=== PATIENT | female | born 1975 | race Caucasian/White ===

== ENCOUNTER 2020-04-25 04:33 | Day surgery (SDC) | payer OTHER ==
[2020-04-23 15:40] VITALS: BMI 26.6
[2020-04-25] MEDS ORDERED: SUCCINYLCHOLINE CHLORIDE 200 MG/10 ML SYRINGE ONE (12:50)
[2020-04-25] MEDS ORDERED: PROPOFOL 20 ML ONE ×3 (12:50→14:49)
[2020-04-25] MEDS ORDERED: LIDOCAINE HCL/PF 2% SDV 5ML VIAL ONE (12:50)
[2020-04-25] MEDS ORDERED: ROCURONIUM BROMIDE 100 MG/10 ML VIAL ONE (12:51)
[2020-04-25] MEDS ORDERED: EPHEDRINE SULFATE/0.9% NACL/PF 50 MG/10 ML SYRINGE NR ONE (12:52)
[2020-04-25] MEDS ORDERED: LIDOCAINE HCL 1%, 10 MG/ML (20ML VIAL) ONE (12:58)
[2020-04-25] MEDS ORDERED: DESFLURANE GAS 240 ML BOTTLE IH ONE ×2 (13:02→13:11)
[2020-04-25] MEDS ORDERED: ONDANSETRON 4 MG/2 ML VIAL IVPUSH PRN (13:21)
[2020-04-25] MEDS ORDERED: oxyCODONE HCL 5 MG TABLET PO PRN ×2 (13:21)
[2020-04-25] MEDS ORDERED: ACETAMINOPHEN 325 MG TABLET (FP) PO PRN ×2 (13:21→15:09)
[2020-04-25] MEDS ORDERED: LACTATED RINGERS SOLUTION 1,000 ML IV SCH ×2 (13:30→15:15)
--- NOTE | 2020-04-25 13:38 | HP ---
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: Alzheimer's, CVA, Dementia, Migraine, Multiple Sclerosis, Peripheral Neuropathy, Parkinson's, Seizure, Syncope, TIA, Vertigo, Other Cardiovascular: No: AFIB, Aneurysm, Aortic Insufficiency, Aortic Stenosis, CAD, CHF, Deep Vein Thrombosis, HTN, Hyperlipdemia, HI, Mitral Insufficiency, Mitral Stenosis, Murmur, Pulmonary Hypertension, Other Pulmonary: No: Asthma, Bronchitis, Cancer, COPD, O2 Dependent, Pneumonia, Previously Intubated, Pulmonary Embolus, Pulmonary Fibrosis, Sleep Apnea, Other Gastrointestinal: No: Ascites, Cancer, Constipation, Crohn's Disease, Diverticulitis, Diverticulosis, Esophageal Varices, Gastritis, GERD, GI Bleed, Hemorrhoids, Hiatal Hernia, Inflamatory Bowel Disease, Irritable Bowel Disease, Pancreatitis, Peptic Ulcer Disease, Ulcerative Colitis, Other Hepatobiliary: No: Cirrhosis, Cholelithiasis, Cholecystitis, Choledocholithiasis, Hepatitis A, Hepatitis B, Hepatitis C, Other Renal/: No: Renal Failure, Renal Inusuff, BPH, Cancer, Hematuria, Hemodialysis, Neurogenic Bladder, Renal Calculi, UTI, Other Reproductive: No: Ectopic , Endometriosis, Fibroids, PID, Polycystic Ovary Syndrome, Postmenopausal, Other ...LMP: 04/22/20 ...: No Heme/Onc: No: Anemia, B12 Deficiency, Bleeding Disorder, Cancer, Current Chemotherapy, Current Radiation Therapy, Hemochromatosis, Hypercoaguable State, Myeloproliferative Synd, Sickle Cell Disease, Sickle Cell Trait, Thrombocytopenia, Other Infectious Disease: No: AIDS, C-Diff, Herpes Zoster, HIV, MRSA, STD's, Tuberculosis, VREF, Other Psych: No: Addictions, Anxiety, Bipolar, Depression, Panic, Psychosis, Schizophrenia, Other Musculoskeletal: No: Bursitis, Chronic low back pain, Hemiparesis, Hemiplegia, Osteoarthritis, Paraplegia, Other Rheumatology: No: Fibromyalgia, Gout, Lupus, Rheumatoid Arthritis, Sarcoidosis, Vasculitis, Other ENT: No: Allergic Rhinitis, Sinusitis, Other Endocrine: No: Wilcox's Disease, [place]'s Disease, Diabetes Insipidus, Diabetes Mellitus, Hyperparathyroidism, Hyperthyroidism, Hypothyroidism, Osteopenia, SIADH, Other Dermatology: No: Basal Cell, Cellulitis, Eczema, Melanoma, Psoriasis, Squamous Cell, Other - Past Surgical History Past Surgical History: No: None, AAA Repair, AICD, Amputation, Appendectomy, Arthrosocopy, AV Fistula/Graft, Bariatric Surgery, Breast Biopsy, Bypass, CABG, Carotid Endarterectomy, Cataract Removal, Cholecystectomy, Colectomy, Colonoscopy, Colostomy, Craniotomy, , Cystectomy, Hernia Repair, Hysterectomy, Ileal Conduit, Ileosotomy, Joint Replacement, Kidney Transplant, Laminectomy, Liver Transplant, Mastectomy, Nephrectomy, Oopherectomy, Orchiectomy, Permanent Pacemaker, Prostatectomy, Splenectomy, Stent, Thoracotomy, TURP, Tonsillectomy, Tubal Ligation, Upper Endoscopy, Valve Replacement, Vasectomy, Vein Stripping/Ligation - Advance Directives Advance Directives: Yes: Living Will - Smoking History Smoking history: Never smoked Have you smoked in the past 12 months: No - Alcohol/Substance Use Hx Alcohol Use: No - Social History Usual Living Arrangement: Yes: Alone Do you think of yourself as: Straight/Heterosexual ADL: Independent History of Recent Travel: No Home Medications - Allergies Allergies/Adverse Reactions: Allergies Allergy/AdvReac Type Severity Reaction Status Date / Time No Known Allergies Allergy Verified 04/25/20 13:03 - Home Medications Home Medications: Ambulatory Orders Atorvastatin Ca [Lipitor] 10 mg PO HS 04/23/20 Control 1 tab PO DAILY 04/23/20 Candesartan/Hydrochlorothiazid [Atacand Hct 32-12.5 mg Tab] 1 each PO DAILY 04/23/20 Family Medical History Family History: Denies Review of Systems - Review of Systems Constitutional: reports: No Symptoms Eyes: reports: No Symptoms HENT: reports: No Symptoms Neck: reports: No Symptoms Cardiovascular: reports: No Symptoms Respiratory: reports: No Symptoms Gastrointestinal: reports: No Symptoms Genitourinary: reports: No Symptoms Breasts: reports: No Symptoms Reported Musculoskeletal: reports: No Symptoms Integumentary: reports: No Symptoms Neurological: reports: No Symptoms Endocrine: reports: No Symptoms Hematology/Lymphatic: reports: No Symptoms Psychiatric: reports: No Symptoms Physical Examination Vital Signs: Vital Signs Temperature 97.8 F 04/25/20 12:45 Pulse Rate 82 04/25/20 12:45 Respiratory Rate 20 04/25/20 12:45 Blood Pressure 140/88 04/25/20 12:45 O2 Sat by Pulse Oximetry (%) 99 04/25/20 12:59 Constitutional: Yes: Well Nourished, No Distress, Calm Eyes: Yes: WNL, Conjunctiva Clear, EOM Intact HENT: Yes: WNL, Atraumatic, Normocephalic Neck: Yes: WNL, Supple, Trachea Midline Cardiovascular: Yes: WNL, Regular Rate and Rhythm Respiratory: Yes: WNL, Regular, CTA Bilaterally Gastrointestinal: Yes: WNL, Normal Bowel Sounds, Soft ...Rectal Exam: Yes: WNL Renal/: Yes: WNL Breast(s): Yes: WNL Musculoskeletal: Yes: WNL Extremities: Yes: WNL Edema: No Peripheral Pulses WNL: Yes Integumentary: Yes: WNL Wound/Incision: Yes: Clean/Dry, Well Approximated Neurological: Yes: WNL, Alert, Oriented ...Motor Strength: WNL Psychiatric: Yes: WNL, Alert, Oriented Assessment/Plan all risks , benefits, alternatives explained, for tbal ligations
[2020-04-25] MEDS ORDERED: ceFAZolin SODIUM 1 GM VIAL IVPB ONE (13:55)
[2020-04-25] MEDS ORDERED: ceFAZolin SODIUM 1 GM VIAL ONE (14:10)
[2020-04-25] MEDS ORDERED: NEOSTIGMINE METHYLSULFATE 0.5 MG/ML - 10 ML MDV ONE (14:22)
[2020-04-25] MEDS ORDERED: GLYCOPYRROLATE 0.2 MG/1 ML VIAL ONE ×2 (14:22→14:58)
[2020-04-25] MEDS ORDERED: DEXAMETHASONE SOD PHOSPHATE 4 MG/1 ML VIAL ONE (14:28)
[2020-04-25] MEDS ORDERED: KETOROLAC TROMETHAMINE 30 MG/1 ML VIAL ONE (14:28)
[2020-04-25] MEDS ORDERED: IBUPROFEN 800 MG/8 ML IJ IVPB PRN (15:09)
[2020-04-25] MEDS ORDERED: IBUPROFEN 600 MG TABLET (FP) PO PRN (15:09)
--- NOTE | 2020-04-25 15:18 | OP ---
Operative Note - Note: Operative Date: 04/25/20 Pre-Operative Diagnosis: btl Operation: btl Post-Operative Diagnosis: Same as Pre-op Surgeon: Home Burrows Anesthesiologist/MURAL ARTIST: Sandra Zavala Anesthesia: General Estimated Blood Loss (mls): 10 (no complications ) Operative Report Dictated: Yes
[2020-04-25 18:41] VITALS: BP 138/90; PULSE 82; TEMP 98
--- NOTE | 2020-04-25 19:31 | OP ---
DATE OF OPERATION: 04/25/2020 PREOPERATIVE DIAGNOSES: Fibroid uterus and bilateral tubal ligation. POSTOPERATIVE DIAGNOSES: Multiple-fibroid uterus and bilateral tubal ligation. PROCEDURE: Laparoscopic tubal ligation. SURGEON: Home Burrows MD PROBATION MANAGER: None. ANESTHESIOLOGIST: COLLEEN Mcclure ANESTHESIA: General. BLOOD LOSS: About 10 mL. INDICATIONS: This is a 45-year-old female patient, 2 vaginal deliveries before and has a history of multiple-fibroid uterus and has been explained to the patient, too. The patient also declined all family planning methods, declined control pill, IUD, injection or any other family methods. All the risks and benefits, alternatives explained to the patient including future ectopic, nonreversible, 99% effective rate. Patient understood. Patient insisted on tubal ligation as the final choice of family planning. So, patient was taken to the OR, was placed on the operating table in supine position. After the general anesthesia was obtained, patient was placed in lithotomy position. The patient's abdomen and pelvis were prepped and draped in the usual sterile manner. Then, a HUMI retractor was placed into the uterine cavity, and then, after that, we proceeded with the abdominal part. So, a Veress needle was inserted into the umbilicus, and the gas was inflated to 15. Then, after that, the 5-mm trocar was inserted into the umbilicus and camera was inserted and pelvic cavity was well visualized. There were multiple fibroids. Both ovaries and fallopian tubes were visualized. Then, through a second puncture of a 5-mm trocar at the right lower quadrant area under direct visualization, no complications. So, after this, we introduced a LigaSure. So, both isthmic ends of the fallopian tubes were grasped with [place] and double transected and suture ligated. Good hemostasis on both ends. Both ovaries looked normal. Multiple fibroids were seen, and some adhesions were seen, too. So, pictures were taken, was shown to the patient about her fibroid uterus. Other than that, good hemostasis. No complications. Tolerated the procedure well. The 5-mm trocar puncture hole was closed, and the skin was closed with a 4-0 chromic. Good hemostasis. Both trocars were removed and good hemostasis. Patient tolerated the procedure well and awakened from general anesthesia and transferred to recovery room in stable condition. MD MINDA POST/[id number]
== END 2020-04-25 18:30 | disposition home or self-care (01) ==
LOC: JASU-SURG 04:33
PROVIDERS: ATTEND Obstetrics & Gynecology
PROC: 0U574ZZ Destruction of Bilateral Fallopian Tubes, Percutaneous Endoscopic Approach (ICD-10-PCS; principal; 2020-04-25 15:00)
DX: Z30.2 Encounter for sterilization (principal); D25.9 Leiomyoma of uterus, unspecified
CPT/HCPCS: 36415; 84703; 86850; 86900; 86901; 94760

== ENCOUNTER 2023-04-14 04:08 | Day surgery (SDC) | payer OTHER ==
[2023-04-13 09:17] VITALS: BMI 26.4
[2023-04-14] MEDS ORDERED: ceFAZolin SODIUM 1 GM VIAL ONE (06:21)
[2023-04-14] MEDS ORDERED: GABAPENTIN 300 MG CAPSULE ONE (06:21)
[2023-04-14] MEDS ORDERED: PHENAZOPYRIDINE HCL 100 MG TABLET (FP) ONE (06:21)
[2023-04-14] MEDS ORDERED: PHENAZOPYRIDINE HCL 100 MG TABLET (FP) PO ONE ×2 (06:30)
[2023-04-14] MEDS ORDERED: GABAPENTIN 300 MG CAPSULE PO ONE ×2 (06:30→07:00)
[2023-04-14] MEDS ORDERED: BUPIVACAINE HCL/PF 0.5% (5MG/ML) 10 ML VIAL ONE (06:56)
[2023-04-14] MEDS ORDERED: ACETAMINOPHEN 1000 MG/100 ML BAG IVPB ONE ×2 (07:00→10:50)
[2023-04-14] MEDS ORDERED: TRANEXAMIC ACID 1000 MG/10 ML VIAL IVPUSH ONE (07:00)
[2023-04-14] MEDS ORDERED: CEFAZOLIN 2 GM in DEXTROSE 5%-WATER 100 ML IVPB ONE (07:00)
[2023-04-14] MEDS ORDERED: MIDAZOLAM HCL 2 MG/2 ML SINGLE DOSE VIAL ONE (07:20)
[2023-04-14] MEDS ORDERED: PROPOFOL 20 ML ONE (07:20)
[2023-04-14] MEDS ORDERED: BUPIVACAINE HCL/PF 0.25% (2.5MG/ML) 10 ML VIAL ONE (07:39)
[2023-04-14] MEDS ORDERED: ceFAZolin SODIUM 1 GM VIAL IVPB ONE (08:15)
[2023-04-14] MEDS ORDERED: ONDANSETRON 4 MG/2 ML VIAL ONE (08:41)
[2023-04-14] MEDS ORDERED: DEXAMETHASONE SOD PHOSPHATE 4 MG/1 ML VIAL ONE (08:41)
[2023-04-14] MEDS ORDERED: ROCURONIUM BROMIDE 50 MG/5 ML SYRINGE ONE (08:50)
[2023-04-14] MEDS ORDERED: HYDROmorphone HCl 2 MG/ML VIAL ONE (09:02)
[2023-04-14] MEDS ORDERED: GLYCOPYRROLATE 0.2 MG/1 ML VIAL ONE (09:58)
[2023-04-14] MEDS ORDERED: NEOSTIGMINE METHYLSULFATE 0.5 MG/1 ML - 10 ML MDV ONE (09:59)
[2023-04-14] MEDS ORDERED: IBUPROFEN 800 MG/8 ML IJ IVPB PRN (10:28)
[2023-04-14] MEDS ORDERED: ACETAMINOPHEN 325 MG TABLET (FP) PO PRN (10:28)
[2023-04-14] MEDS ORDERED: ONDANSETRON 4 MG/2 ML VIAL IVPUSH PRN ×2 (10:28→10:33)
[2023-04-14] MEDS ORDERED: DOCUSATE SODIUM 100 MG CAPSULE (FP) PO PRN (10:28)
[2023-04-14] MEDS ORDERED: oxyCODONE HCL 5 MG TABLET PO PRN (10:28)
[2023-04-14] MEDS ORDERED: BISACODYL 5 MG TABLET.DR (FP) PO PRN (10:28)
[2023-04-14] MEDS ORDERED: ACETAMINOPHEN INJECTION 100 ML IVPB ONE (10:57)
[2023-04-14] MEDS: LACTATED RINGERS SOLUTION 1,000 ML IV SCH (14:17)
[2023-04-14 17:37] VITALS: RESP 18
[2023-04-14] MEDS: CEFAZOLIN 1 GM in DEXTROSE 5%-WATER - 50 ML IVPB SCH (17:42)
[2023-04-14 20:02] LABS: HEMATOCRIT 31.7 % (32.4-45.2); MCH 23.4 pg (25.7-33.7); MCHC 31.4 g/dl (32.0-36.0); MEAN CELL VOLUME 74.6 fl (80-96); MEAN PLT VOLUME 7.3 fl (7.5-11.1); PLATELET COUNT 490 10^3/uL (134-434); RBC 4.25 M/mm3 (3.60-5.2); RDW 18.8 % (11.6-15.6)
[2023-04-14 20:27] LABS: CALCIUM 9.2 mg/dL (8.5-10.1)
[2023-04-14 20:29] LABS: BLOOD UREA NITROGEN 12.6 mg/dL (7-18)
[2023-04-14 20:31] LABS: CREATININE 0.9 mg/dL (0.55-1.3)
[2023-04-14] MEDS ORDERED: ATORVASTATIN CA 10 MG TABLET (FP) PO SCH (22:00)
[2023-04-14] MEDS: SIMETHICONE 80 MG TAB.CHEW (FP) PO PRN (23:09)
[2023-04-14] MEDS: oxyCODONE HCL 5 MG TABLET PO PRN (23:10)
[2023-04-15] MEDS: CEFAZOLIN 1 GM in DEXTROSE 5%-WATER - 50 ML IVPB SCH ×2 (01:49→08:59)
[2023-04-15 08:46] LABS: HEMATOCRIT 28.5 % (32.4-45.2); MCHC 31.4 g/dl (32.0-36.0); MEAN CELL VOLUME 76.2 fl (80-96); MEAN PLT VOLUME 7.3 fl (7.5-11.1); PLATELET COUNT 424 10^3/uL (134-434); RBC 3.74 M/mm3 (3.60-5.2); RDW 18.5 % (11.6-15.6); WHITE BLOOD COUNT 15.6 K/mm3 (4.0-10.0)
[2023-04-15 08:47] VITALS: BP 122/74; PULSE 81; TEMP 98.5
[2023-04-15] MEDS: oxyCODONE HCL 5 MG TABLET PO PRN (08:57)
[2023-04-15] MEDS: SIMETHICONE 80 MG TAB.CHEW (FP) PO PRN (09:00)
[2023-04-15 09:05] LABS: BLOOD UREA NITROGEN 12.7 mg/dL (7-18); CALCIUM 8.7 mg/dL (8.5-10.1)
[2023-04-15 09:09] LABS: CREATININE 0.6 mg/dL (0.55-1.3)
[2023-04-15] MEDS ORDERED: POTASSIUM CHLORIDE ORAL LIQUID 20 MEQ/15 ML PO SCH (10:00)
[2023-04-15] MEDS ORDERED: ENOXAPARIN NA (PORCINE) 40 MG/0.4 ML DISP.SYRIN SQ SCH (10:00)
[2023-04-15] MEDS ORDERED: PATIENT'S OWN MEDICATION (NON-FORMULARY) (Losartan/Hydrochlorothiazide [Losartan-Hctz 100- PO SCH (10:00)
[2023-04-15] MEDS ORDERED: LOSARTAN 50MG/HCTZ 12.5MG 1 TAB PO SCH (10:00)
[2023-04-15] MEDS ORDERED: KETOROLAC TROMETHAMINE 30 MG/1 ML VIAL IVPUSH SCH (10:30)
[2023-04-15] MEDS: LACTATED RINGERS SOLUTION 1,000 ML IV SCH (10:37)
== END 2023-04-15 15:45 | disposition home or self-care (01) ==
LOC: JASUSAT 04:08 → J3W 13:26 → JASUSAT 04-15 15:45
PROVIDERS: ATTEND Obstetrics & Gynecology
PROC: 0UT9FZZ Resection of Uterus, Via Natural or Artificial Opening With Percutaneous Endoscopic Assistance (ICD-10-PCS; principal; 2023-04-14 07:30)
PROC: 0UT7FZZ Resection of Bilateral Fallopian Tubes, Via Natural or Artificial Opening With Percutaneous Endoscopic Assistance (ICD-10-PCS; 2023-04-14 07:30)
PROC: 0UB04ZZ Excision of Right Ovary, Percutaneous Endoscopic Approach (ICD-10-PCS; 2023-04-14 07:30)
DX: D25.9 Leiomyoma of uterus, unspecified (principal); N80.03 Adenomyosis of the uterus; N80.121 Deep endometriosis of right ovary; N83.201 Unspecified ovarian cyst, right side
CPT/HCPCS: 58554; 58662; S2900; 36415; 80048; 81025; 85027; 88302-TC; 88305-TC; 88307-TC; 94760